=== PATIENT | male | born 1955 | race Hispanic/Latino ===

== ENCOUNTER → 2022-08-30 | Outpatient (CLI) | payer MEDICARE | LOC: CARD 13:47 | PROVIDERS: ATTEND Family Medicine | DX: R09.89 Other specified symptoms and signs involving the circulatory and respiratory systems (principal) | CPT/HCPCS: 93880 ==

== ENCOUNTER → 2023-04-13 | Outpatient (CLI) | payer MEDICARE | LOC: CARD 08:59 | PROVIDERS: ATTEND Family Medicine | DX: I65.23 Occlusion and stenosis of bilateral carotid arteries (principal) | CPT/HCPCS: 93880 ==

== ENCOUNTER → 2024-06-25 | Outpatient (REF) | payer MEDICARE | LOC: RAD 10:39 | PROVIDERS: ATTEND Student in an Organized Health Care Education/Training Program | DX: M75.91 Shoulder lesion, unspecified, right shoulder (principal) ==